=== PATIENT | male | born 1960 | race Caucasian/White ===

== ENCOUNTER → 2016-08-27 | Outpatient (CLI) | payer OTHER ==
--- NOTE | 2016-08-27 17:10 | DI ---
MRI LOW EXTREMITY JNT W/O CN,08/27/2016 12:34 PM: Clinical History: Right knee pain Previous Exam: None at this facility. Findings: Multiplanar MR images are obtained through the right knee without contrast. Bony alignment is anatomic. No fractures are seen. There are some osteochondral defects involving the medial compartment with some fissuring and some full-thickness defects with subchondral cyst formati on. There is mild thinning of the articular cartilage within the lateral and anterior compartments as wel l. There is a full-thickness osteochondral defect involving the anterior left medial femoral condyle wit h some subchondral cyst formation. This osteochondral defect measures 4.5 cm in diameter. Menisci: There is a complex tear of the posterior horn of the medial meniscus. The lateral meniscus i s intact. The anterior and posterior cruciate ligaments are intact. The medial and lateral collateral ligaments are also intact. There is a trace amount of fluid within the knee joint. The arcuate ligament and popliteus tendon are unremarkable. The quadriceps tendon and the patellar tendon is unremarkable. There is no evidence of acute fracture. Signal within the musculature is unremarkable. The major vasc ular flow voids are unremarkable. There is a large complex Mckeon's cyst. Impression: 1. Complex tear of the posterior horn of the medial meniscus. 2. Large Mckeon's cyst. 3. Osteochondral defects predominantly within the medial compartment with a 4.[address] involving the anterior medial femoral condyle. 4. Small knee joint effusion.
== END ==
LOC: MRI 12:25
PROVIDERS: ATTEND Chiropractor
DX: M25.561 Pain in right knee (principal); M23.221 Derangement of posterior horn of medial meniscus due to old tear or injury, right knee; M71.21 Synovial cyst of popliteal space [Baker], right knee; M25.461 Effusion, right knee
CPT/HCPCS: 73721

== ENCOUNTER 2016-09-07 05:30 | Emergency (ER) | payer OTHER ==
[2016-09-07] MEDS ORDERED: NORMAL SALINE 10 ML SYRINGE FLUSH IVP PRN (05:45)
[2016-09-07] MEDS ORDERED: ONDANSETRON 4 MG/2 ML VIAL IVP ONE (05:45)
[2016-09-07] MEDS ORDERED: MORPHINE SULFATE 4 MG/1 ML IVP ONE (05:47)
[2016-09-07] MEDS ORDERED: KETOROLAC 15 MG/1 ML VIAL IVP ONE (05:47)
[2016-09-07 05:50] VITALS: RESP 18; TEMP 97.1
--- NOTE | 2016-09-07 05:53 | PDOC ---
Lower Extremity Problem HPI - General Chief Complaint: Lower Extremity Problem/Injury Stated Complaint: RIGHT KNEE PAIN Date Seen by Provider: 09/07/16 Time Seen by Provider: 05:45 Source: POSITIVE: Patient Exam Limitations: POSITIVE: No limitations Nurse's Notes Reviewed & Considered: Yes - History of Present Illness Initial Comments: The patient is a 56-year-old male who is evaluated in the emergency department with right knee pain. He states that approximately a month ago he injured his right knee. He was subsequently diagnosed with a meniscus tear on MRI. He is supposed to be having surgery sometime soon. He states that a couple of days ago he was quite active in his shop and did a lot of bending and standing. For the past couple of days he has had increase in pain in his right knee. He has also had some popping. He has increased pain with bending his knee. He has not had any locking of the knee. Last night his pain intensified even worse and he has not really had any sleep last night. He did take aspirin as well as ibuprofen at home without any relief. He denies any fevers or chills, swelling in the leg, any other associated symptoms. He does have a history of gout. - Patient Home Medications Home Medications: Home Medications Cetirizine HCl [Zyrtec] 10 mg PO DAILY 08/05/12 Oxycodone HCl/Acetaminophen [Percocet 7.5-325 Mg Tablet] 1 each PO Q6H PRN #15 tablet 09/07/16 - Patient Allergies Allergies/Adverse Reactions: Allergies Allergy/AdvReac Type Severity Reaction Status Date / Time Penicillins Allergy Severe Anaphylaxis Verified 09/07/16 05:42 codeine Allergy HIVES Verified 09/07/16 05:42 Past Medical History - heen HEENT History: Denies History Cardiovascular History: Denies History Respiratory History: Denies History Gastrointestinal History: Denies History Genitourinary History: Denies History Endocrine History: Denies History Musculoskeletal History: Gout, Other (please comment) Prosthesis or Implant: No Additional Musculoskeletal History: pt reports right knee meniscus injury Neurological History: Denies History Blood Disorders: Denies History Psychiatric History: Denies History History of Sexually Transmitted Diseases: No Cancer History: Denies History In Past Year Been Physically Harmed or Verbally Threatened: No History of MDRO: No History of Other Communicable Diseases: No Tobacco Use: Never Smoker Alcohol Use: Rarely Substance Use Type: None Previous Surgical History: Yes Type / Date of Surgery: LEFT MIDDLE FINGER TENDON REPAIR Anesthesia Reactions: No Malignant Hyperthermia: No Significant Family History: No pertinent family hx Past Medical History Reviewed: Reviewed - No Changes ROS - Limitations ROS Limitations: No Limitations Constitution: DENIES: Chills, Fever Cardiovascular: REPORTS: Denies Cardiac Symptoms Respiratory: REPORTS: Denies Resp Symptoms Neurological: REPORTS: Denies Neuro Symptoms Gastrointestinal: REPORTS: Denies GI Symptoms Skin: DENIES: Rash Lower Ext Problem Exam - General Appearance General Appearance: POSITIVE: Alert, Cooperative, No Acute Distress - Extremities Lower Extremity: POSITIVE: Other (Examination the right lower extremity reveals no obvious swelling or erythema, he does have tenderness over the medial aspect of the knee joint, limited range of motion at the knee secondary to pain, good dorsalis pedis pulse in the right foot) Vascular: POSITIVE: No Vascular Compromise - Neuro / Psych Neuro/Psych: POSITIVE: Sensation Normal, Motor Normal - Skin Skin: POSITIVE: Normal Color. NEGATIVE: Rash - HEENT HEENT: POSITIVE: Head Inspection Nml - Respiratory / CVS Respiratory / CVS: POSITIVE: No Respiratory Distress, Breath Sounds Normal, Regular Rate/Rhythm, Heart Sounds Normal Peripheral Pulses: Dorsalis-pedis (R): 2+ Lower Ext Problem Progress - Results Reviewed by me Lab Results Reviewed: Yes - Patient's Progress MDM / ED Course: An IV was established and the patient did receive Toradol 15 mg IV, morphine 4 mg IV and Zofran 4 mg IV. His pain was improved after administration of medications. His blood work is all essentially unremarkable. He has a known medial meniscus tear and this is likely the source of current pain. He was placed in a knee immobilizer for comfort. He is advised to ice and elevate the right knee. He is advised to take ibuprofen 600 mg every 6 hours as needed for pain and was prescribed Percocet 7.5/325 one every 4-6 hours as needed for pain. He is advised return to the emergency room if increased pain or swelling , fever, any worsening or change in symptoms. He is advised follow-up with his orthopedic surgeon. - Consult Counseled: POSITIVE: Patient, Family, RE: Lab Results, RE: DX, RE: Need for F/U Patient Care Time - Estimated PCT Patient Care Time (In Minutes): 20 Vital Signs - VS Reviewed Vital Signs Reviewed: Yes Discharge Clinical Impression: Medial meniscus tear Discharge Disposition: Discharged to Home Condition: Stable Prescriptions / Orders: Oxycodone HCl/Acetaminophen [Percocet 7.5-325 Mg Tablet] 1 each PO Q6H PRN #15 tablet PRN Reason: Pain Patient Instructions Given at Discharge: Meniscus Tear (ED) Additional Instructions: Straight leg immobilizer for comfort. Ice and elevate the right knee. Ibuprofen 600 mg every 6 hours as needed for pain. Percocet 7.5/325 one every 4 -6 hours as needed for pain. Return to the emergency room if increased pain or swelling, fever, any worsening or change in symptoms. Recommend follow-up with orthopedic surgery. Follow Up With: Eric Real [Primary Care Provider] -
[2016-09-07 06:10] LABS: BASOPHILS # (AUTO) 0.06 10*3/UL; BASOPHILS % (AUTO) 0.6 % (0-1); EOSINOPHILS # (AUTO) 0.42 10*3/UL; EOSINOPHILS % (AUTO) 4.5 % (0-8); HEMATOCRIT 48.7 % (42.0-52.0); HEMOGLOBIN 17.5 g/dL (14.0-18.0); LYMPHOCYTES # (AUTO) 1.39 10*3/uL; MEAN CORPUSCULAR HEMOGLOBIN 30.7 PG (27-31); MEAN CORPUSCULAR HGB CONC 35.9 g/dL (33-37); MEAN CORPUSCULAR VOLUME 85.4 FL (80-90); MEAN PLATELET VOLUME 11.4 FL (7.4-12.2); MONOCYTES # (AUTO) 0.72 10*3/UL (0.3-0.8); MONOCYTES % (AUTO) 7.7 % (5-15); NEUTROPHILS # (AUTO) 6.71 10*3/UL; NEUTROPHILS % (AUTO) 71.9 % (50-80)
[2016-09-07 06:14] LABS: PLATELET MORPHOLOGY COMMENT NORMAL MORPHOLOGY (NORM); RBC MORPHOLOGY COMMENT NORMAL MORPHOLOGY (NORM); WBC MORPHOLOGY COMMENT NORMAL MORPHOLOGY (NORM)
[2016-09-07 06:20] LABS: BLOOD UREA NITROGEN 24 mg/dL (7-22); CALCIUM 9.3 mg/dL (8.7-10.7); EST GLOMERULAR FILTRATION > 60 (>60 ml/min/1.73m(2)); SERUM ALBUMIN 4.3 g/dL (3.5-4.8)
[2016-09-07] MEDS ORDERED: oxyCODONE-ACETAMINOPHEN 5-325 TAB PO ONE (06:49)
== END 2016-09-07 07:05 | disposition home or self-care (01) ==
LOC: ER 05:30
DX: S83.231D Complex tear of medial meniscus, current injury, right knee, subsequent encounter (principal); Y99.0 Civilian activity done for income or pay
CPT/HCPCS: 80053; 84550; 85025; 86140; 96374; 96375; 99282; 99283; J1885; J2270; J2405